=== PATIENT | female | born 1980 | race Caucasian/White ===

== ENCOUNTER 2017-06-15 18:39 | Emergency (ER) | payer MEDICAID, OTHER ==
[2017-06-15 18:49] VITALS: BP 119/79
[2017-06-15] MEDS ORDERED: Sodium Chloride 0.9% 10 ML Syringe FLUSH PRN (19:11)
[2017-06-15] MEDS ORDERED: diphenhydrAMINE 50 MG/ML SDV IVPUSH ONE (19:13)
[2017-06-15] MEDS ORDERED: Sodium Chloride 0.9% 1,000 ML IV ONE (19:13)
[2017-06-15] MEDS ORDERED: Ondansetron 4 MG/2 ML SDV IVPUSH ONE (19:13)
[2017-06-15] MEDS ORDERED: Haloperidol Lactate 5 MG/ML SDV IVPUSH ONE (19:18)
[2017-06-15] MEDS: Haloperidol Lactate 5 MG/ML SDV IVPUSH ONE ×2 (19:30→19:35)
[2017-06-15] MEDS ORDERED: Magnesium Citrate Solution 296 ML Bottle PO ONE (20:35)
--- NOTE | 2017-06-15 20:38 | EDM.PDOC ---
ED HPI GENERAL MEDICAL PROBLEM - General Chief Complaint: Headache Stated Complaint: headache cramping Time Seen by Provider: 06/15/17 18:59 Source of Information: Reports: Patient History Limitations: Reports: No Limitations - History of Present Illness INITIAL COMMENTS - FREE TEXT/NARRATIVE: Patient is a 36 year old female who presents to the E.D. complaining of headache for the past 3 days. Headache is bitemporal with no vision changes, fever, or stiff neck. 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 Pain is sharp in nature with throbbing present. Has hx of migraines diagnosed with migraines by neurologists. In addition has diarrhea with generalized abdominal cramping and poor appetite. Denies blood in her stool, and/or ingestion of bad/questionable food. She has had no diarrhea today. Patient states son had flu like symptoms last week that resolved. Denies fever, sob,cp,dysuria, or any additional complaints. 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 (see below) Other Treatments DIGITAL SALES EXECUTIVE: schuyler arriaza Headache Pain Score (Numeric/FACES): 10 - Related Data Allergies Allergy/AdvReac Type Severity Reaction Status Date / Time ciprofloxacin Allergy Facial Verified 05/07/16 11:52 Swelling Home Meds: Home Meds traMADol [Ultram] 50 mg PO ASDIRECTED PRN 05/07/16 [History] Amitriptyline [Elavil] 0 mg PO BEDTIME 06/15/17 [History] Past Medical History Other Musculoskeletal History: fx tailbone Neurological History: Reports: Migraines Psychiatric History: Reports: Anxiety - Past Surgical History Female Surgical History: Reports: Breast Implant, Hysterectomy Social & Family History - Tobacco Use Smoking Status *Q: Never Smoker Second Hand Smoke Exposure: No - Caffeine Use Caffeine Use: Reports: Coffee, Energy Drinks, Soda - Recreational Drug Use Recreational Drug Use: No - Living Situation & Occupation Living situation: Reports: Occupation: Employed ED ROS GENERAL - Review of Systems Review Of Systems: ROS reveals no pertinent complaints other than HPI. ED EXAM, GI/ABD - Physical Exam Exam: See Below Exam Limited By: No Limitations General Appearance: Alert, WD/WN, No Apparent Distress Ears: Hearing Grossly Normal Nose: Normal Inspection Throat/Mouth: Normal Voice, No Airway Compromise Neck: Normal Inspection, Supple Respiratory/Chest: No Respiratory Distress, Lungs Clear, Normal Breath Sounds, No Accessory Muscle Use, Chest Non-Tender Cardiovascular: Normal Peripheral Pulses, Regular Rate, Rhythm, No Murmur GI/Abdominal Exam: Normal Bowel Sounds, Soft, No Organomegaly, No Distention, Tender (generalized. mild in nature with palpation. ) (Female) Exam: Deferred Rectal (Female) Exam: Deferred Back Exam: Normal Inspection. No: CVA Tenderness (L), CVA Tenderness (R) Extremities: Normal Inspection, Non-Tender, No Pedal Edema, Normal Capillary Refill Neurological: Alert, Oriented, CN II-XII Intact, Normal Cognition, No Motor/ Sensory Deficits Psychiatric: Normal Affect, Normal Mood Skin Exam: Warm, Dry, Intact, Normal Color Course - Vital Signs Last Recorded V/S: Last Vital Signs Temp 98.2 F 06/15/17 18:48 Pulse 76 06/15/17 18:48 Resp 20 06/15/17 18:48 BP 119/79 06/15/17 18:48 Pulse Ox 99 06/15/17 18:48 - Orders/Labs/Meds Labs: Laboratory Tests 06/15/17 06/15/17 06/15/17 Range/Units 19:16 19:16 19:35 WBC 6.84 (3.98-10.04) K/mm3 RBC 4.67 (3.98-5.22) M/mm3 Hgb 14.0 (11.2-15.7) gm/L Hct 42.2 (34.1-44.9) % MCV 90.4 (79.4-94.8) fl MCH 30.0 (25.6-32.2) pg MCHC 33.2 (32.2-35.5) g/dl RDW Std Deviation 41.9 (36.4-46.3) fL Plt Count 198 (182-369) K/mm3 MPV 10.6 (9.4-12.3) fl Neut % (Auto) 65.9 (34.0-71.1) % Lymph % (Auto) 19.6 (19.3-51.7) % Oliver % (Auto) 10.1 (4.7-12.5) % Eos % (Auto) 3.7 (0.7-5.8) Baso % (Auto) 0.6 (0.1-1.2) % Neut # (Auto) 4.51 (1.56-6.13) K/mm3 Lymph # (Auto) 1.34 (1.18-3.74) K/mm3 Oliver # (Auto) 0.69 H (0.24-0.36) K/mm3 Eos # (Auto) 0.25 (0.04-0.36) K/mm3 Baso # (Auto) 0.04 (0.01-0.08) K/mm3 Sodium 143 (136-145) mEq/L Potassium 3.5 (3.5-5.1) mEq/L Chloride 108 H (98-107) mEq/L Carbon Dioxide 24 (21-32) mEq/L Anion Gap 14.5 (5-15) BUN 14 (7-18) mg/dL Creatinine 0.8 (0.55-1.02) mg/dL Est Cr Clr Drug Dosing 100.62 mL/min Estimated GFR (MDRD) > 60 (>60) mL/min BUN/Creatinine Ratio 17.5 (14-18) Glucose 99 (74-106) mg/dL Calcium 8.4 L (8.5-10.1) mg/dL Total Bilirubin 0.5 (0.2-1.0) mg/dL AST 10 L (15-37) U/L ALT 19 (14-59) U/L Alkaline Phosphatase 29 L (46-116) U/L C-Reactive Protein < 0.2 (<1.0) mg/dL Total Protein 6.8 (6.4-8.2) g/dl Albumin 3.9 (3.4-5.0) g/dl Globulin 2.9 gm/dL Albumin/Globulin Ratio 1.3 (1-2) Lipase 274 (73-393) U/L TSH 3rd Generation 0.864 (0.358-3.74) uIU/mL Urine Color Yellow (Yellow) Urine Appearance Clear (Clear) Urine pH 6.0 (5.0-8.0) Ur Specific Mulino > or = 1.030 (1.005-1.030) Urine Protein Trace H (Negative) Urine Glucose (UA) Negative (Negative) Urine Ketones Trace H (Negative) Urine Occult Blood Negative (Negative) Urine Nitrite Positive H (Negative) Urine Bilirubin Negative (Negative) Urine Urobilinogen 0.2 (0.2-1.0) Ur Leukocyte Esterase Negative (Negative) Urine RBC 0-5 (0-5) /hpf Urine WBC 0-5 (0-5) /hpf Ur Epithelial Cells 5-10 H (0-5) /hpf Urine Bacteria Many H (FEW) /hpf Urine Mucus Moderate H (FEW) /hpf Meds: Medications Discontinued Medications Generic Name Dose Route Start Last Admin Trade Name Freq PRN Reason Stop Dose Admin Diphenhydramine HCl 50 mg 06/15/17 19:13 06/15/17 19:31 Benadryl IVPUSH 06/15/17 19:14 50 mg ONETIME ONE Administration Haloperidol Lactate 10 mg 06/15/17 19:13 06/15/17 19:35 Haldol IVPUSH 06/15/17 19:14 Not Given ONETIME ONE Haloperidol Lactate 5 mg 06/15/17 19:18 06/15/17 19:35 Haldol IVPUSH 06/15/17 19:19 5 mg ONETIME ONE Administration Sodium Chloride 1,000 mls @ 999 mls/hr 06/15/17 19:13 06/15/17 19:30 Normal Saline IV 06/15/17 20:13 999 mls/hr ONETIME ONE Administration Magnesium Citrate 296 ml 06/15/17 20:35 06/15/17 20:45 Citrate Of Magnesia PO 06/15/17 20:36 Not Given ONETIME ONE Ondansetron HCl 4 mg 06/15/17 19:13 06/15/17 19:31 Zofran IVPUSH 06/15/17 19:14 4 mg ONETIME ONE Administration Sodium Chloride 10 ml 06/15/17 19:11 06/15/17 19:31 Saline Flush FLUSH 10 ml ASDIRECTED PRN Administration Keep Vein Open - Re-Assessments/Exams Free Text/Narrative Re-Assessment/Exam: IV established with normal saline, Haldol 5 mg IVP, Benadryl 25 mg IVP, and Zofran 4 mg IVP. Initial labs and studies include CBC, chem 14, TSH, lipase,UA, and 2 view of the abdomen. Labs reviewed: CBC and chemistry panel were essentially normal. TSH, CRP, and lipase were all within normal limits. UA: Trace protein, ketones trace, nitrates positive, epithelial cells 5-10, bacteria many, mucus moderate. UA contaminated. 2030 reassessment, patient states headache has completely resolved. She has no more stomach cramping as well. Shared results of labs and abdominal x-ray with the patient. Copious amounts of stool within the colon. She is taking MiraLAX one capful daily. We'll send home with mag citrate. Discharge instructions as documented. Departure - Departure Time of Disposition: 20:35 Disposition: Home, Self-Care 01 Condition: Good Clinical Impression: Abdominal cramping Migraine Qualifiers: Migraine type: other Status migrainosus presence: without status migrainosus Intractability: not intractable Qualified Code(s): G43.809 - Other migraine, not intractable, without status migrainosus - Discharge Information Instructions: Migraine Headache, [id number], Abdominal Pain, Adult, Easy-to- Read Referrals: Yolanda Montalvo CREDIT INTERVIEWER [Primary Care Provider] - Forms: ED Department Discharge Additional Instructions: No driving this evening since receiving a sedative medication while in the ED. Suggest going home and find a dark room to sleep and with no distractions. X- ray of the abdomen did reveal copious amounts of stool within the right hemicolon also the rectal vault. Findings suggestive of being constipated. Continue taking MiraLAX one capful daily was plenty of water or juice. In addition will have you take magnesium citrate half a bottle this evening and half bottle tomorrow morning. Increase fiber in your diet along with exercise. Follow-up with your primary care provider this week or the first part of next week for further evaluation as needed. Return to ED for any new or worsening symptoms.
--- NOTE | 2017-06-16 07:02 | CR ---
Abdomen: Supine and upright views of the abdomen were obtained. Comparison: No prior study. Bowel gas pattern appears normal. No abnormal calcifications or soft tissue abnormality is seen. Bony structures are unremarkable. No free air is seen. Impression: 1. Unremarkable two-view abdominal x-ray. Diagnostic code #1
== END 2017-06-15 20:40 | disposition home or self-care (01) ==
LOC: JD.ED 18:39
DX: G43.809 Other migraine, not intractable, without status migrainosus (principal); R10.9 Unspecified abdominal pain; Z88.1 Allergy status to other antibiotic agents
CPT/HCPCS: 36415; 74020; 80053; 81001; 83690; 84443; 85025; 86140; 96361; 96374; 96375; 99284; J1200; J1630; J2405; J7040; J7050

== ENCOUNTER 2017-10-30 11:37 | Emergency (ER) | payer OTHER ==
--- NOTE | 2017-10-30 15:39 | EDM.PDOC ---
ED HPI GENERAL MEDICAL PROBLEM - General Chief Complaint: Respiratory Problem Stated Complaint: FLU SX Time Seen by Provider: 10/30/17 14:07 Source of Information: Reports: Patient History Limitations: Reports: No Limitations - History of Present Illness INITIAL COMMENTS - FREE TEXT/NARRATIVE: Patient is a 36-year-old female who presents to the ED with recent diagnosis of ones of this past Thursday and is on Tamiflu. Patient has had fever, chills, sweating, sore throat, headaches, body aches, and upper respiratory congestion. States she believes she has strep throat. States they did swab her at the clinic but did not tell her if she did have strep throat or not. She is concerned she has strep throat since a family member has similar symptoms and had strep throat. She feels as if she is not getting any better. She has been eating and drinking okay. States she has a cough that is slightly productive. Denies any shortness of breath. 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) Other Treatments PRINT SHOP STENOGRAPHER: advil and tamiflu Generalized Pain Score (Numeric/FACES): 10 - Related Data Allergies Allergy/AdvReac Type Severity Reaction Status Date / Time ciprofloxacin Allergy Facial Verified 05/07/16 11:52 Swelling Home Meds: Home Meds traMADol [Ultram] 50 mg PO ASDIRECTED PRN 05/07/16 [History] Oseltamivir [Tamiflu] 0 mg PO BID 10/30/17 [History] Past Medical History Other Musculoskeletal History: fx tailbone Neurological History: Reports: Migraines Psychiatric History: Reports: Anxiety - Past Surgical History Female Surgical History: Reports: Breast Implant, Hysterectomy Social & Family History - Tobacco Use Smoking Status *Q: Never Smoker Second Hand Smoke Exposure: No - Caffeine Use Caffeine Use: Reports: Coffee - Recreational Drug Use Recreational Drug Use: No - Living Situation & Occupation Living situation: Reports: Occupation: Employed ED ROS GENERAL - Review of Systems Review Of Systems: ROS reveals no pertinent complaints other than HPI. ED EXAM, GENERAL - Physical Exam Exam: See Below Exam Limited By: No Limitations General Appearance: Alert, WD/WN, No Apparent Distress Ears: Normal External Exam, Normal Canal, Hearing Grossly Normal, Normal TMs Nose: Normal Inspection, Normal Mucosa, No Blood Throat/Mouth: Normal Inspection, Normal Voice, No Airway Compromise, Other (red posterior pharnyx with swelling noted. no uvula deviation. no exudates notes. ) Neck: Normal Inspection, Supple, Non-Tender, Full Range of Motion Respiratory/Chest: No Respiratory Distress, Lungs Clear, Normal Breath Sounds, No Accessory Muscle Use, Chest Non-Tender, Other (coughing during examiniation) Cardiovascular: Normal Peripheral Pulses, Regular Rate, Rhythm Peripheral Pulses: 4+: Radial (R) Extremities: Normal Inspection Neurological: Alert, Oriented, CN II-XII Intact, Normal Cognition, No Motor/ Sensory Deficits Psychiatric: Normal Affect, Normal Mood Skin Exam: Warm, Dry, Intact, Normal Color, No Rash Course - Vital Signs Last Recorded V/S: Last Vital Signs Temp 98.7 F 10/30/17 12:13 Pulse 81 10/30/17 15:45 Resp 16 10/30/17 15:45 BP 117/75 10/30/17 15:45 Pulse Ox 100 10/30/17 15:45 - Re-Assessments/Exams Free Text/Narrative Re-Assessment/Exam: Strep screen was negative. Chest x-ray did not reveal any concerning findings. Patient has influenza will continue on Tamiflu as prescribed. Discharge instructions as documented. Departure - Departure Time of Disposition: 15:38 Disposition: Home, Self-Care 01 Condition: Good Clinical Impression: Influenza - Discharge Information Instructions: Influenza, Adult, [id number] Referrals: Yolanda Montalvo, SURVEILLANCE DIRECTOR [Primary Care Provider] - Forms: ED Department Discharge Additional Instructions: Strep screen was negative. Chest x-ray did not reveal any findings concerning for pneumonia. Continue with the Tamiflu as prescribed. He have influenza. Also suggest taking Tylenol and ibuprofen in alternating fashion for discomfort. Push the fluids. Ensure adequate rest. Follow-up with PCP at the conclusion of therapy if symptoms have not resolved. Return to the ED if you develop any new or worsening symptoms.
[2017-10-30 15:54] VITALS: BP 117/75
--- NOTE | 2017-10-31 14:05 | CR ---
Chest: Two views of the chest were obtained. Comparison: No previous study. Heart size and mediastinum are normal. Lungs are clear. Minimal scoliosis is noted. Impression: 1. Nothing acute is appreciated on two-view chest x-ray. Diagnostic code #1
== END 2017-10-30 15:47 | disposition home or self-care (01) ==
LOC: JD.ED 11:37
DX: J11.1 Influenza due to unidentified influenza virus with other respiratory manifestations (principal); Z88.1 Allergy status to other antibiotic agents
CPT/HCPCS: 71046; 71046-26; 87081; 87430; 99284

== ENCOUNTER 2018-05-20 23:18 | Emergency (ER) | payer MEDICAID, OTHER ==
[2018-05-20 23:29] VITALS: BP 126/70
--- NOTE | 2018-05-21 00:42 | EDM.PDOC ---
ED HPI GENERAL MEDICAL PROBLEM - General Chief Complaint: Respiratory Problem Stated Complaint: HEADACHE/CONGESTION/BODY ACHES Time Seen by Provider: 05/21/18 00:09 Source of Information: Reports: Patient, RN Notes Reviewed History Limitations: Reports: No Limitations - History of Present Illness INITIAL COMMENTS - FREE TEXT/NARRATIVE: The patient states that she developed chills, nasal congestion with rhinorrhea, a cough productive of yellow sputum, a sore throat, nausea, and abdominal pain, about 5 days ago. She was seen at the walk-in clinic yesterday, , 2017. She states that no tests were done, but that she was told that she has a cold. Nevertheless, for reasons that the patient does not know, she was prescribed amoxicillin. She states that she has taken one dose already. Her symptoms have not improved, wherefore she came to the ED for evaluation. Here in the ED, the patient's vitals are stable, she is afebrile, saturating 99 % on room air. The patient states that she has been intimate with a coworker who is similarly ill, although was not been medically evaluated. The patient's PCP was Arcelia Montalvo. She does not currently have a PCP. Generalized Pain Score (Numeric/FACES): 10 - Related Data Allergies Allergy/AdvReac Type Severity Reaction Status Date / Time ciprofloxacin Allergy Facial Verified 05/20/18 23:26 Swelling Past Medical History Musculoskeletal History: Reports: Fracture (coccyx) Neurological History: Reports: Headaches, Chronic Psychiatric History: Reports: Anxiety (untreated) - Past Surgical History Female Surgical History: Reports: Breast Implant, Hysterectomy Social & Family History - Tobacco Use Smoking Status *Q: Never Smoker - Caffeine Use Caffeine Use: Reports: Coffee - Alcohol Use Alcohol Use History: Yes Alcohol Use Frequency: Socially - Recreational Drug Use Recreational Drug Use: No - Living Situation & Occupation Living situation: Reports: , with Family (3 kids) 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 ED EXAM, GENERAL - Physical Exam Exam: See Below Exam Limited By: No Limitations General Appearance: Alert, WD/WN, No Apparent Distress Eye Exam: Bilateral Eye: EOMI, Normal Inspection Ears: Normal External Exam, Normal Canal, Hearing Grossly Normal, Normal TMs Nose: Normal Inspection, No Blood, Other (Bilateral nasal mucosa edema) Throat/Mouth: Normal Inspection, Normal Lips, Normal Teeth, Normal Gums, Normal Voice, No Airway Compromise, Other (Generalized oropharyngeal erythema) Head: Atraumatic, Normocephalic Neck: Normal Inspection, Supple, Non-Tender, Full Range of Motion. No: Lymphadenopathy (L), Lymphadenopathy (R) Respiratory/Chest: No Respiratory Distress, Lungs Clear, Normal Breath Sounds, No Accessory Muscle Use. No: Crackles, Rhonchi, Wheezing Cardiovascular: Normal Peripheral Pulses, Regular Rate, Rhythm, No Edema, No Gallop, No JVD, No Murmur, No Rub Peripheral Pulses: 4+: Radial (L), Radial (R) GI/Abdominal: Normal Bowel Sounds, Soft, Non-Tender, No Organomegaly, No Distention, No Abnormal Bruit, No Mass (Female) Exam: Deferred Rectal (Female) Exam: Deferred Back Exam: Normal Inspection, Full Range of Motion, NT Extremities: Normal Inspection, Normal Range of Motion, No Pedal Edema, Normal Capillary Refill Neurological: Alert, Oriented, Normal Cognition, No Motor/Sensory Deficits Psychiatric: Normal Affect Skin Exam: Warm, Dry, Intact, Normal Color, No Rash Course - Vital Signs Last Recorded V/S: Last Vital Signs Temp 37.3 C 05/20/18 23:27 Pulse 94 05/20/18 23:27 Resp 18 05/20/18 23:27 BP 126/70 05/20/18 23:27 Pulse Ox 99 05/20/18 23:27 - Orders/Labs/Meds Orders: Active Orders 24 hr Category Date Time Status CULTURE STREP A CONFIRMATION [] Stat Lab 05/21/18 00:33 Results STREP SCRN A RAPID W CULT CONF [RM] Stat Lab 05/21/18 00:33 Results - Re-Assessments/Exams Free Text/Narrative Re-Assessment/Exam: 05/21/18 00:40 The patient appears to have a viral URI, and was told so when seen at the walk- in clinic yesterday, however, for reasons unclear, she was also prescribed amoxicillin. I swabbed the patient's tonsils for a rapid strep test, but the patient declined an offer for blood work, chest x-ray, and urinalysis. 05/21/18 01:10 The patient's rapid strep test has returned negative. Test results discussed with the patient. As above, it appears that the patient has a viral URI. I explained that most viral URIs take about 12 days to run their course. I advised the patient to stop taking the amoxicillin and throw the remaining pills into the trash. I against any [id number] cough or cold remedies, as they have been shown to be of no benefit, but do have side effects, such as stomach upset. The patient expressed understanding. Departure - Departure Time of Disposition: 01:11 Disposition: Home, Self-Care 01 Condition: Good Clinical Impression: Viral URI with cough - Discharge Information *PRESCRIPTION DRUG MONITORING PROGRAM REVIEWED*: Not Applicable *COPY OF PRESCRIPTION DRUG MONITORING REPORT IN PATIENT EMMA: Not Applicable Referrals: Arlene Seaman PA-C [Physician Right Of Way Worker] - Forms: ED Department Discharge Additional Instructions: You were seen in the emergency room for symptoms of a cough, chills, a sore throat, nasal congestion with runny nose, nausea, and abdominal pain, for the past 5 days. Workup in the ER included a rapid strep test, which returned negative. Further workup, including blood work, a chest x-ray, and urinalysis were offered , but declined. Based on your history, physical examination, and rapid strep test results, your symptoms are MOST LIKELY due to a viral URI, also known as a common cold. Unfortunately, there are no medicines to treat a viral URI - it will have to run its course, which typically takes about 12 days. We do not recommend that you take any [id number] cough or cold remedies - they have been shown to be of no benefit, but do have side effects, such as an upset stomach. We recommend that you stop taking the amoxicillin that you were prescribed, and throw the remaining pills into the trash. Do not flush them down the toilet. Follow-up with Arlene Seaman in the clinic as needed. If any other problems, please do not hesitate to return to the ER. - My Orders Last 24 Hours: My Active Orders 05/21/18 00:33 CULTURE STREP A CONFIRMATION [RM] Stat STREP SCRN A RAPID W CULT CONF [RM] Stat - Assessment/Plan Last 24 Hours: My Active Orders 05/21/18 00:33 CULTURE STREP A CONFIRMATION [RM] Stat STREP SCRN A RAPID W CULT CONF [RM] Stat
== END 2018-05-21 01:26 | disposition home or self-care (01) ==
LOC: JD.ED 23:18
DX: J06.9 Acute upper respiratory infection, unspecified (principal); Z88.1 Allergy status to other antibiotic agents
CPT/HCPCS: 87081; 87430; 99283

== ENCOUNTER 2020-04-06 09:16 | Emergency (ER) | payer SELFPAY ==
[2020-04-06 09:34] VITALS: BP 121/82; PULSE 82
--- NOTE | 2020-04-06 10:52 | EDM.PDOC ---
ED HPI GENERAL MEDICAL PROBLEM - General Chief Complaint: General Stated Complaint: FEVER/HEADACHE/BODY ACHES Time Seen by Provider: 04/06/20 10:42 - History of Present Illness INITIAL COMMENTS - FREE TEXT/NARRATIVE: 39-year-old female presents the emergency room with fever body aches and headache. This is been going on for the last several days. Patient was seen in the clinic yesterday and was tested for COVID. She is really not had any improvement. Patient complains of being achy all over she has not been eating or drinking very much however not having nausea or vomiting. She does have a headache and has a history of migraines. Patient denies any neck tightness or difficulty moving her head. So basically she is got decreased appetite and is achy all over with a headache. The patient has had some loose stools, and this morning she thought she had some black tarry stools with maybe some bloody streaks in it. 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 History: Reports: Fracture Other Musculoskeletal History: fx tailbone Neurological History: Reports: Headaches, Chronic Psychiatric History: Reports: Anxiety Endocrine/Metabolic History: Reports: None Hematologic History: Reports: None Immunologic History: Reports: None Oncologic (Cancer) History: Reports: None Dermatologic History: Reports: None - Infectious Disease History Infectious Disease History: Reports: None - Past Surgical History GI Surgical History: Reports: Other (See Below) Other GI Surgeries/Procedures: Hemorrhoidectomy Female Surgical History: Reports: Breast Implant, Hysterectomy Social & Family History - Tobacco Use Smoking Status *Q: Never Smoker - Caffeine Use Caffeine Use: Reports: Coffee - Recreational Drug Use Recreational Drug Use: No - Living Situation & Occupation Living situation: Reports: , with Family (3 kids) 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[employer]) ED ROS GENERAL - Review of Systems Review Of Systems: See Below Constitutional: Reports: Fever, Chills HEENT: Reports: No Symptoms Respiratory: Denies: Shortness of Breath Cardiovascular: Reports: No Symptoms Endocrine: Reports: No Symptoms GI/Abdominal: Reports: Decreased Appetite : Reports: No Symptoms Musculoskeletal: Denies: Neck Pain Neurological: Reports: Headache ED EXAM, GENERAL - Physical Exam Exam: See Below Exam Limited By: No Limitations General Appearance: Alert, No Apparent Distress Eye Exam: Bilateral Eye: EOMI, Normal Inspection, PERRL Ears: Normal External Exam, Normal Canal, Hearing Grossly Normal, Normal TMs Nose: Normal Inspection, Normal Mucosa, No Blood Throat/Mouth: Normal Inspection, Normal Lips, Normal Teeth, Normal Gums, Normal Oropharynx, Normal Voice, No Airway Compromise Head: Atraumatic, Normocephalic Neck: Normal Inspection, Supple, Non-Tender, Full Range of Motion, Other (The patient can freely move her head either direction without difficulty and no tenderness with motion, no nuchal rigidity noted). No: Lymphadenopathy (L), L ymphadenopathy (R), Tender Lateral, Tender Midline Respiratory/Chest: No Respiratory Distress, Lungs Clear, Normal Breath Sounds Cardiovascular: Regular Rate, Rhythm, No Edema, No Murmur GI/Abdominal: Normal Bowel Sounds, Soft, Non-Tender Neurological: Alert, Oriented, Normal Cognition, No Motor/Sensory Deficits Course - Vital Signs Last Recorded V/S: Last Vital Signs Temp 36.2 C 04/06/20 09:29 Pulse 82 04/06/20 09:29 Resp 16 04/06/20 09:29 BP 121/82 04/06/20 09:29 Pulse Ox 100 04/06/20 09:29 - Orders/Labs/Meds Orders: Active Orders 24 hr Category Date Time Status CULTURE URINE [RM] Stat Lab 04/06/20 11:53 Received Lactated Ringers [Ringers, Lactated] 1,000 ml Med 04/06/20 11:15 Active IV ASDIRECTED Isolation [COMM] Routine Oth 04/06/20 09:30 Ordered Medication Orders Lactated Ringer's (Ringers, Lactated) 1,000 mls @ 150 mls/hr IV ASDIRECTED CHRISTINA Labs: Laboratory Tests 04/06/20 04/06/20 04/06/20 Range/Units 11:25 11:25 11:53 WBC 5.84 (3.98-10.04) K/mm3 RBC 5.02 (3.98-5.22) M/mm3 Hgb 14.7 D (11.2-15.7) gm/dl Hct 45.2 H (34.1-44.9) % MCV 90.0 D (79.4-94.8) fl MCH 29.3 (25.6-32.2) pg MCHC 32.5 (32.2-35.5) g/dl RDW Std Deviation 42.6 (36.4-46.3) fL Plt Count 188 (182-369) K/mm3 MPV 11.4 (9.4-12.3) fl Neut % (Auto) 73.3 H (34.0-71.1) % Lymph % (Auto) 16.6 L (19.3-51.7) % [place] % (Auto) 8.7 (4.7-12.5) % Eos % (Auto) 0.5 L (0.7-5.8) Baso % (Auto) 0.7 (0.1-1.2) % Neut # (Auto) 4.28 (1.56-6.13) K/mm3 Lymph # (Auto) 0.97 L (1.18-3.74) K/mm3 [place] # (Auto) 0.51 H (0.24-0.36) K/mm3 Eos # (Auto) 0.03 L (0.04-0.36) K/mm3 Baso # (Auto) 0.04 (0.01-0.08) K/mm3 Sodium 142 (136-145) mEq/L Potassium 4.1 (3.5-5.1) mEq/L Chloride 107 (98-107) mEq/L Carbon Dioxide 22 (21-32) mEq/L Anion Gap 17.1 H (5-15) BUN 13 (7-18) mg/dL Creatinine 0.8 (0.55-1.02) mg/dL Est Cr Clr Drug Dosing 87.02 mL/min Estimated GFR (MDRD) > 60 (>60) mL/min BUN/Creatinine Ratio 16.3 (14-18) Glucose 98 (74-106) mg/dL Calcium 8.9 (8.5-10.1) mg/dL Magnesium 1.9 (1.8-2.4) mg/dl Total Bilirubin 0.6 (0.2-1.0) mg/dL AST 15 (15-37) U/L ALT 19 (14-59) U/L Alkaline Phosphatase 33 L (46-116) U/L Total Protein 7.3 (6.4-8.2) g/dl Albumin 4.0 (3.4-5.0) g/dl Globulin 3.3 gm/dL Albumin/Globulin Ratio 1.2 (1-2) Lipase 159 (73-393) U/L Urine Color Yellow (Yellow) Urine Appearance Clear (Clear) Urine pH 6.5 (5.0-8.0) Ur Specific [place] > or = 1.030 (1.005-1.030) Urine Protein 1+ H (Negative) Urine Glucose (UA) Negative (Negative) Urine Ketones 1+ H (Negative) Urine Occult Blood Negative (Negative) Urine Nitrite Negative (Negative) Urine Bilirubin 1+ H (Negative) Urine Urobilinogen 1.0 (0.2-1.0) Ur Leukocyte Esterase 1+ H (Negative) Urine RBC 0-5 (0-5) /hpf Urine WBC 20-30 H (0-5) /hpf Ur Squamous Epith Cells 10-20 H (0-5) /hpf Urine Bacteria Rare (FEW) /hpf Urine Mucus Many H (FEW) /hpf Meds: Medications Generic Name Dose Route Start Last Admin Trade Name Freq PRN Reason Stop Dose Admin Lactated Ringer's 1,000 mls @ 150 mls/hr 04/06/20 11:15 Ringers, Lactated IV ASDIRECTED CHRISTINA Discontinued Medications Generic Name Dose Route Start Last Admin Trade Name Freq PRN Reason Stop Dose Admin Diphenhydramine HCl 25 mg 04/06/20 11:34 04/06/20 11:45 Benadryl IVPUSH 04/06/20 11:35 25 mg ONETIME ONE Administration Lactated Ringer's 1,000 mls @ 999 mls/hr 04/06/20 11:06 04/06/20 11:27 Ringers, Lactated IV 04/06/20 12:06 999 mls/hr .BOLUS ONE Administration Ketorolac Tromethamine 15 mg 04/06/20 11:34 04/06/20 11:45 Toradol IVPUSH 04/06/20 11:35 15 mg ONETIME ONE Administration Ondansetron HCl 4 mg 04/06/20 11:06 04/06/20 11:27 Zofran IVPUSH 04/06/20 11:07 4 mg ONETIME ONE Administration - Re-Assessments/Exams Free Text/Narrative Re-Assessment/Exam: 04/06/20 12:31 The patient received IV fluids she received Toradol and Benadryl for headache. She is not completely better but she is improving. At this point will discharge her home clear liquid diet and go home and sleep. Did discuss COVID precautions and isolation instructions. This is probably contaminated she is not having any UTI symptoms. I did discuss this with her we will not do anything until we see with culture and sensitivity looks like. Departure - Departure Time of Disposition: 12:32 Disposition: Home, Self-Care 01 Clinical Impression: Viral illness, Cephalgia - Discharge Information Referrals: Alta Mack MD [Primary Care Provider] - Forms: ED Department Discharge Additional Instructions: Return to the emergency room with any questions problems or worsening symptoms. Go home and take a nap. Clear liquid diet for the next 24 hours then slowly advance as tolerated. Follow-up with your regular physician on Thursday or Thursday if needed. Sepsis Event Note (ED) - Evaluation Sepsis Screening Result: No Definite Risk - Focused Exam Vital Signs: Vital Signs Temp Pulse Resp BP Pulse Ox 04/06/20 09:29 36.2 C 82 16 121/82 100 - My Orders Last 24 Hours: My Active Orders 04/06/20 09:30 Isolation [COMM] Routine 04/06/20 11:15 Lactated Ringers [Ringers, Lactated] 1,000 ml IV ASDIRECTED 04/06/20 11:53 CULTURE URINE [RM] Stat - Assessment/Plan Last 24 Hours: My Active Orders 04/06/20 09:30 Isolation [COMM] Routine 04/06/20 11:15 Lactated Ringers [Ringers, Lactated] 1,000 ml IV ASDIRECTED 04/06/20 11:53 CULTURE URINE [RM] Stat
[2020-04-06] MEDS ORDERED: Ondansetron 4 MG/2 ML SDV IVPUSH ONE (11:06)
[2020-04-06] MEDS ORDERED: Lactated Ringers 1,000 ML IV ONE (11:06)
[2020-04-06] MEDS ORDERED: Lactated Ringers 1,000 ML IV SCH (11:15)
[2020-04-06] MEDS ORDERED: Ketorolac 15 MG/ML SDV IVPUSH ONE (11:34)
[2020-04-06] MEDS ORDERED: diphenhydrAMINE 50 MG/ML SDV IVPUSH ONE (11:34)
== END 2020-04-06 12:50 | disposition home or self-care (01) ==
LOC: JD.ED 09:16
DX: B34.9 Viral infection, unspecified (principal); R51 Headache; Z88.8 Allergy status to other drugs, medicaments and biological substances; Z79.899 Other long term (current) drug therapy; Z90.710 Acquired absence of both cervix and uterus
CPT/HCPCS: 36415; 80053; 81001; 83690; 83735; 85025; 87086; 87088; 96374; 96375; 99284; J1200; J1885; J2405; J7120; 99283

== ENCOUNTER 2020-09-29 20:29 | Emergency (ER) | payer OTHER ==
[2020-09-29 21:02] VITALS: BP 118/76; PULSE 64
[2020-09-29] MEDS ORDERED: Ondansetron 4 MG/2 ML SDV IVPUSH ONE (21:26)
--- NOTE | 2020-09-29 21:26 | EDM.PDOC ---
ED HPI GENERAL MEDICAL PROBLEM - General Chief Complaint: Headache Stated Complaint: EXTREME KIDNEY PAIN Time Seen by Provider: 09/29/20 20:53 Source of Information: Reports: Patient History Limitations: Reports: No Limitations - History of Present Illness INITIAL COMMENTS - FREE TEXT/NARRATIVE: This is a 39-year-old female. She was seen in the walk-in clinic yesterday. She was diagnosed by CT scan with IV contrast with a multifocal right-sided pyelonephritis and possible abscess formation. It was noted that there was no drainable collection at this time. She had a white count of 16.2 her urinalysis was normal other than trichomonas her CMP was essentially normal and her Covid antigen was negative. She was given Flagyl for the bacterial vaginitis and placed on Omnicef. The patient states she is not been feeling better today and this evening she had onset of her headache which she is oftentimes known for but with a headache she developed nausea vomiting she had some diarrhea. She complains of chills but the last time she checked a temp it was 100.2. Yesterday had to give her 2 L of fluids because she was dry. Due to the severe headache the continued back pain and the nausea and vomiting and diarrhea she comes to the ER for evaluation. Treatments HERBOLOGIST: Reports: Other Medication(s) Other Treatments HERBOLOGIST: Omnicef, zofran, Flagyl Bilateral Pelvic Pain Score (Numeric/FACES): 8 Bilateral Temporal Headache Pain Score (Numeric/FACES): 10 - Related Data Allergies Allergy/AdvReac Type Severity Reaction Status Date / Time ciprofloxacin Allergy Facial Verified 09/29/20 21:02 Swelling Home Meds: Home Meds Cranberry 400 mg PO DAILY 04/06/20 [History] Cefdinir [Omnicef] 300 mg PO BID 09/29/20 [History] metroNIDAZOLE [Flagyl] 500 mg PO BID 09/29/20 [History] Hydrocodone/Acetaminophen [Hydrocodone-Acetamin 5-325 mg] 1 each PO Q4H PRN #10 tablet 09/30/20 [Rx] Past Medical History - Past Health History Medical/Surgical History: Denies Medical/Surgical History HEENT History: Reports: None Cardiovascular History: Reports: None Respiratory History: Reports: 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 Other Musculoskeletal History: fx tailbone Neurological History: Reports: Headaches, Chronic Psychiatric History: Reports: Anxiety Endocrine/Metabolic History: Reports: None Hematologic History: Reports: None Immunologic History: Reports: None Oncologic (Cancer) History: Reports: None Dermatologic History: Reports: None - Infectious Disease History Infectious Disease History: Reports: None - Past Surgical History GI Surgical History: Reports: Other (See Below) Other GI Surgeries/Procedures: Hemorrhoidectomy Female Surgical History: Reports: Breast Implant, Hysterectomy Social & Family History - Caffeine Use Caffeine Use: Reports: Coffee - Living Situation & Occupation Living situation: Reports: , with Family (3 kids) 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 Denies: Abdominal Pain : Reports: Dysuria, Flank Pain, Pain Musculoskeletal: Reports: No Symptoms Skin: Reports: No Symptoms Neurological: Reports: No Symptoms Psychiatric: Reports: No Symptoms - Physical Exam Exam: See Below Exam Limited By: No Limitations General Appearance: Alert, WD/WN, Anxious Eye Exam: Bilateral Eye: Normal Inspection Ears: Normal External Exam, Normal Canal, Normal TMs Nose: Normal Inspection Throat/Mouth: Normal Inspection, Normal Lips, Normal Voice, No Airway Compromise Head Exam: Normocephalic Neck: Supple Respiratory/Chest: No Respiratory Distress, Lungs Clear, Normal Breath Sounds Cardiovascular: Regular Rate, Rhythm, No Murmur GI/Abdominal: Soft, Non-Tender Neuro Exam (Abbreviated): Alert, Oriented Back Exam: Full Range of Motion, CVA Tenderness (R). No: CVA Tenderness (L) Extremities: Normal Inspection, Normal Range of Motion Psychiatric: Anxious Skin Exam: Warm, Dry Course - Vital Signs Last Recorded V/S: Last Vital Signs Temp 98.9 F 09/29/20 20:58 Pulse 64 09/29/20 20:58 Resp 14 09/29/20 20:58 BP 118/76 09/29/20 20:58 Pulse Ox 100 09/29/20 20:58 - Orders/Labs/Meds Orders: Active Orders 24 hr Category Date Time Status Kidney Ultrasound [Retroperitoneal Comp] [US] Stat Exams 09/29/20 23:04 Taken CULTURE BLOOD [BC] Stat Lab 09/29/20 21:50 Received CULTURE BLOOD [BC] Stat Lab 09/29/20 22:00 Received Sodium Chloride 0.9% [Normal Saline] 1,000 ml Med 09/29/20 21:30 Active IV ASDIRECTED Sodium Chloride 0.9% [Normal Saline] 1,000 ml Med 09/29/20 23:30 Active IV ASDIRECTED Blood Culture x2 Reflex Set [OM.PC] Stat Oth 09/29/20 21:33 Ordered Medication Orders Sodium Chloride (Normal Saline) 1,000 mls @ 1,000 mls/hr IV ASDIRECTED CHRISTINA Last Admin: 09/29/20 21:36 Dose: 1,000 mls/hr Documented by: JUMA Sodium Chloride (Normal Saline) 1,000 mls @ 500 mls/hr IV ASDIRECTED CHRISTINA Last Admin: 09/29/20 23:35 Dose: 500 mls/hr Documented by: CHAPARRO Labs: Laboratory Tests 09/29/20 09/29/20 09/29/20 Range/Units 21:38 21:38 21:38 WBC 11.44 H (3.98-10.04) K/mm3 RBC 4.81 (3.98-5.22) M/mm3 Hgb 14.3 (11.2-15.7) gm/dl Hct 43.8 (34.1-44.9) % MCV 91.1 (79.4-94.8) fl MCH 29.7 (25.6-32.2) pg MCHC 32.6 (32.2-35.5) g/dl RDW Std Deviation 46.6 H (36.4-46.3) fL Plt Count 227 (182-369) K/mm3 MPV 10.3 (9.4-12.3) fl Neut % (Auto) 73.2 H (34.0-71.1) % Lymph % (Auto) 8.7 L (19.3-51.7) % [place] % (Auto) 16.5 H (4.7-12.5) % Eos % (Auto) 0.6 L (0.7-5.8) Baso % (Auto) 0.3 (0.1-1.2) % Neut # (Auto) 8.38 H (1.56-6.13) K/mm3 Lymph # (Auto) 0.99 L (1.18-3.74) K/mm3 [place] # (Auto) 1.89 H (0.24-0.36) K/mm3 Eos # (Auto) 0.07 (0.04-0.36) K/mm3 Baso # (Auto) 0.03 (0.01-0.08) K/mm3 Manual Slide Review Abnormal smear Sodium 140 (136-145) mEq/L Potassium 2.9 L (3.5-5.1) mEq/L Chloride 102 (98-107) mEq/L Carbon Dioxide 30 (21-32) mEq/L Anion Gap 10.9 (5-15) BUN 7 (7-18) mg/dL Creatinine 0.9 (0.55-1.02) mg/dL Est Cr Clr Drug Dosing 80.80 mL/min Estimated GFR (MDRD) > 60 (>60) mL/min BUN/Creatinine Ratio 7.8 L (14-18) Glucose 111 H (74-106) mg/dL Lactic Acid 1.2 (0.4-2.0) mmol/L Calcium 8.5 (8.5-10.1) mg/dL Total Bilirubin 0.3 (0.2-1.0) mg/dL AST 16 (15-37) U/L ALT 53 (14-59) U/L Alkaline Phosphatase 62 (46-116) U/L C-Reactive Protein 23.7 H* (<1.0) mg/dL Total Protein 7.0 (6.4-8.2) g/dl Albumin 2.9 L (3.4-5.0) g/dl Globulin 4.1 gm/dL Albumin/Globulin Ratio 0.7 L (1-2) Urine Color (Yellow) Urine Appearance (Clear) Urine pH (5.0-8.0) Ur Specific [place] (1.005-1.030) Urine Protein (Negative) Urine Glucose (UA) (Negative) Urine Ketones (Negative) Urine Occult Blood (Negative) Urine Nitrite (Negative) Urine Bilirubin (Negative) Urine Urobilinogen (0.2-1.0) Ur Leukocyte Esterase (Negative) Urine RBC (0-5) /hpf Urine WBC (0-5) /hpf Ur Squamous Epith Cells (0-5) /hpf Urine Bacteria (FEW) /hpf Urine Mucus (FEW) /hpf 09/29/20 Range/Units 21:45 WBC (3.98-10.04) K/mm3 RBC (3.98-5.22) M/mm3 Hgb (11.2-15.7) gm/dl Hct (34.1-44.9) % MCV (79.4-94.8) fl MCH (25.6-32.2) pg MCHC (32.2-35.5) g/dl RDW Std Deviation (36.4-46.3) fL Plt Count (182-369) K/mm3 MPV (9.4-12.3) fl Neut % (Auto) (34.0-71.1) % Lymph % (Auto) (19.3-51.7) % [place] % (Auto) (4.7-12.5) % Eos % (Auto) (0.7-5.8) Baso % (Auto) (0.1-1.2) % Neut # (Auto) (1.56-6.13) K/mm3 Lymph # (Auto) (1.18-3.74) K/mm3 [place] # (Auto) (0.24-0.36) K/mm3 Eos # (Auto) (0.04-0.36) K/mm3 Baso # (Auto) (0.01-0.08) K/mm3 Manual Slide Review Sodium (136-145) mEq/L Potassium (3.5-5.1) mEq/L Chloride (98-107) mEq/L Carbon Dioxide (21-32) mEq/L Anion Gap (5-15) BUN (7-18) mg/dL Creatinine (0.55-1.02) mg/dL Est Cr Clr Drug Dosing mL/min Estimated GFR (MDRD) (>60) mL/min BUN/Creatinine Ratio (14-18) Glucose (74-106) mg/dL Lactic Acid (0.4-2.0) mmol/L Calcium (8.5-10.1) mg/dL Total Bilirubin (0.2-1.0) mg/dL AST (15-37) U/L ALT (14-59) U/L Alkaline Phosphatase (46-116) U/L C-Reactive Protein (<1.0) mg/dL Total Protein (6.4-8.2) g/dl Albumin (3.4-5.0) g/dl Globulin gm/dL Albumin/Globulin Ratio (1-2) Urine Color Yellow (Yellow) Urine Appearance Clear (Clear) Urine pH 6.5 (5.0-8.0) Ur Specific [place] 1.015 (1.005-1.030) Urine Protein Negative (Negative) Urine Glucose (UA) Negative (Negative) Urine Ketones Negative (Negative) Urine Occult Blood Negative (Negative) Urine Nitrite Negative (Negative) Urine Bilirubin Negative (Negative) Urine Urobilinogen 0.2 (0.2-1.0) Ur Leukocyte Esterase Trace H (Negative) Urine RBC Not seen (0-5) /hpf Urine WBC 0-5 (0-5) /hpf Ur Squamous Epith Cells 0-5 (0-5) /hpf Urine Bacteria Rare (FEW) /hpf Urine Mucus Rare (FEW) /hpf Meds: Medications Generic Name Dose Route Start Last Admin Trade Name Asa PRN Reason Stop Dose Admin Sodium Chloride 1,000 mls @ 1,000 mls/hr 09/29/20 21:30 09/29/20 21:36 Normal Saline IV 1,000 mls/hr ASDIRECTED CHRISTINA Administration Sodium Chloride 1,000 mls @ 500 mls/hr 09/29/20 23:30 09/29/20 23:35 Normal Saline IV 500 mls/hr ASDIRECTED CHRISTINA Administration Discontinued Medications Generic Name Dose Route Start Last Admin Trade Name Asa PRN Reason Stop Dose Admin Diphenhydramine HCl 25 mg 09/29/20 21:28 09/29/20 21:38 Benadryl IVPUSH 09/29/20 21:29 25 mg ONETIME ONE Administration Hydromorphone HCl 0.5 mg 09/29/20 21:29 09/29/20 21:39 Dilaudid IVPUSH 09/29/20 21:30 0.5 mg ONETIME ONE Administration Hydromorphone HCl 0.5 mg 09/29/20 23:56 09/30/20 00:02 Dilaudid IVPUSH 09/29/20 23:57 0.5 mg ONETIME ONE Administration Ceftriaxone Sodium 2 gm/ 100 mls @ 200 mls/hr 09/29/20 21:27 09/29/20 21:37 Sodium Chloride IV 09/29/20 21:56 200 mls/hr ONETIME ONE Administration Lorazepam 0.5 mg 09/29/20 21:29 09/29/20 21:48 Ativan IVPUSH 09/29/20 21:30 0.5 mg ONETIME ONE Administration Ondansetron HCl 4 mg 09/29/20 21:26 09/29/20 21:38 Zofran IVPUSH 09/29/20 21:27 4 mg ONETIME ONE Administration - Radiology Interpretation Free Text/Narrative:: Ultrasound of the kidneys does not show any obvious abscess formation though there is not Covid echogenic mass at the lateral right renal cortex but it could be just benign or a ligament. They suggested a CT scan be done but she had one on Thursday. - Re-Assessments/Exams Free Text/Narrative Re-Assessment/Exam: 09/30/20 01:01 02 the patient about the white count going from 16-11 today the urine looking good. I believe that her infection is under control and she does not have any abscesses but she does need careful follow-up. She is going to follow-up with her family doctor by calling her on Thursday and being seen. She knows that if there is any problems she can always return to the ER. She states her headache is better. Departure - Departure Time of Disposition: 01:02 Disposition: Home, Self-Care 01 Condition: Fair Clinical Impression: Pyelonephritis, Bacterial vaginitis Headache Qualifiers: Headache type: unspecified Headache chronicity pattern: acute headache Intractability: not intractable Qualified Code(s): R51.9 - Headache, unspecified - Discharge Information *PRESCRIPTION DRUG MONITORING PROGRAM REVIEWED*: Yes *COPY OF PRESCRIPTION DRUG MONITORING REPORT IN PATIENT EMMA: No Prescriptions: Hydrocodone/Acetaminophen [Hydrocodone-Acetamin 5-325 mg] 1 each PO Q4H PRN #10 tablet PRN Reason: Pain Instructions: Pyelonephritis, Adult, [id number], Bacterial Vaginosis Referrals: Alta Mack MD [Primary Care Provider] - Forms: ED Department Discharge Additional Instructions: Continue with your Flagyl antibiotic for the bacterial vaginitis and you with the Omnicef for the kidney infection, drink lots of fluids but avoid sodas and caffeine, please call your family doctor on Thursday because you need to be rechecked to make sure you continue to do well, return to the ER if needed. Sepsis Event Note (ED) - Evaluation Sepsis Screening Result: No Definite Risk - Focused Exam Vital Signs: Vital Signs Temp Pulse Resp BP Pulse Ox 09/29/20 20:58 98.9 F 64 14 118/76 100 - My Orders Last 24 Hours: My Active Orders 09/29/20 21:30 Sodium Chloride 0.9% [Normal Saline] 1,000 ml IV ASDIRECTED 09/29/20 21:33 Blood Culture x2 Reflex Set [OM.PC] Stat 09/29/20 21:50 CULTURE BLOOD [BC] Stat 09/29/20 22:00 CULTURE BLOOD [BC] Stat 09/29/20 23:04 Kidney Ultrasound [Retroperitoneal Comp] [US] Stat 09/29/20 23:30 Sodium Chloride 0.9% [Normal Saline] 1,000 ml IV ASDIRECTED - Assessment/Plan Last 24 Hours: My Active Orders 09/29/20 21:30 Sodium Chloride 0.9% [Normal Saline] 1,000 ml IV ASDIRECTED 09/29/20 21:33 Blood Culture x2 Reflex Set [OM.PC] Stat 09/29/20 21:50 CULTURE BLOOD [BC] Stat 09/29/20 22:00 CULTURE BLOOD [BC] Stat 09/29/20 23:04 Kidney Ultrasound [Retroperitoneal Comp] [US] Stat 09/29/20 23:30 Sodium Chloride 0.9% [Normal Saline] 1,000 ml IV ASDIRECTED
[2020-09-29] MEDS ORDERED: cefTRIAXone 2 GM in Sodium Chloride 0.9% 100 ML IV ONE (21:27)
[2020-09-29] MEDS ORDERED: diphenhydrAMINE 50 MG/ML SDV IVPUSH ONE (21:28)
[2020-09-29] MEDS ORDERED: HYDROmorphone 0.5 MG/0.5 ML Syringe IVPUSH ONE ×2 (21:29→23:56)
[2020-09-29] MEDS ORDERED: LORazepam 2 MG/ML SDV IVPUSH ONE (21:29)
[2020-09-29] MEDS ORDERED: Sodium Chloride 0.9% 1,000 ML IV SCH ×2 (21:30→23:30)
--- NOTE | 2020-09-30 11:04 | US ---
Renal ultrasound: Multiple real-time images of both kidneys were obtained. There is a mass being seen within the right kidney measuring 2.2 x 2.2 x 1.5 cm. Questionable stone is seen measuring up to 6 mm within the left kidney. Bilateral ureteral jets are seen within the bladder. Resistivity indices appear to be normal on both sides. There is a slightly prominent renal pelvis believed to be a normal variant. Measurements: Right kidney: Length 13.2 cm Left kidney: Length 12.2 cm Bladder: Prevoid bladder volume is 184 mL and postvoid bladder volume was not calculated Impression: 1. Small 2.2 cm mass within the right kidney. Uncertain if this is benign or malignant. 2. Other findings as noted above. 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
== END 2020-09-30 01:26 | disposition home or self-care (01) ==
LOC: JD.ED 20:29
DX: N12 Tubulo-interstitial nephritis, not specified as acute or chronic (principal); R51.9 Headache, unspecified; N76.0 Acute vaginitis; Z88.1 Allergy status to other antibiotic agents
CPT/HCPCS: 36415; 76770; 80053; 81001; 83605; 85025; 86140; 87040; 96365; 96375; 96376; 99284; J0696; J1170; J1200; J2060; J2405; J7030; J7050

== ENCOUNTER 2021-01-20 01:06 | Emergency (ER) | payer OTHER ==
[2021-01-20 01:18] VITALS: BP 107/58; PULSE 67
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
[2021-01-20] MEDS ORDERED: fentaNYL 100 MCG/2 ML SDV IVPUSH ONE (02:52)
[2021-01-20] MEDS ORDERED: HYDROmorphone 0.5 MG/0.5 ML Syringe IM ONE (02:58)
--- NOTE | 2021-01-21 11:26 | CT ---
CT maxillofacial Technique: Multiple axial sections to the face were obtained. Reconstructed coronal and sagittal images were obtained. Intravenous contrast was not utilized. Reconstructed coronal and sagittal images were also obtained. Comparison: No previous facial study is available. Findings: Mildly displaced fractures are seen on both sides of the nasal bone. Slight mucosal thickening is seen within the inferior maxillary sinuses which is believed to be chronic. Slight mucosal thickening is also noted within the left frontal sinus believed to be chronic. Mastoid sinuses appear to be clear. No additional facial bone fracture is appreciated. Impression: 1. Slightly displaced bilateral nasal bone fractures. 2. Mild mucosal thickening within the paranasal sinuses which is believed to be chronic. 3. No other acute abnormality is appreciated. Diagnostic code #3 I agree with preliminary report from [facility], finalized on 01/20/21, 4:48 AM CDT, code 1
== END 2021-01-20 04:08 | disposition home or self-care (01) ==
LOC: JD.ED 01:06
DX: S02.2XXA Fracture of nasal bones, initial encounter for closed fracture (principal); Z88.1 Allergy status to other antibiotic agents; W50.0XXA Accidental hit or strike by another person, initial encounter
CPT/HCPCS: 70486; 96372; 99283; J1170